=== PATIENT | male | born 1980 | race Caucasian/White ===

== ENCOUNTER 2021-11-13 15:03 | Emergency (ER) | payer MEDICAID ==
[~2021-11-13] VITALS: Ht 190.5 cm; Wt 86.4 kg
[2021-11-13 15:21] VITALS: BP 122/89
== END 2021-11-13 16:59 | disposition home or self-care (01) ==
LOC: ER 15:04
DX: B34.9 Viral infection, unspecified (principal); Z20.822 Contact with and (suspected) exposure to COVID-19; R09.81 Nasal congestion; R05.9 Cough, unspecified; R50.9 Fever, unspecified; R06.02 Shortness of breath; F17.200 Nicotine dependence, unspecified, uncomplicated
CPT/HCPCS: 87635; 99283; C9803